=== PATIENT | female | born 1990 | race American Indian/Alaskan Native ===

== ENCOUNTER 2019-03-20 12:30 | Emergency (ER) | payer MEDICAID ==
[2019-03-20] MEDS ORDERED: PROVENTIL IH ONE (12:37)
[2019-03-20] MEDS ORDERED: ATROVENT IH ONE (12:37)
[2019-03-20] MEDS ORDERED: SOLU-Medrol IM ONE (12:38)
--- NOTE | 2019-03-20 12:40 | Emergency Department Report ---
ED Asthma HPI - General Chief Complaint: Dyspnea/Respdistress Stated Complaint: OUMOU Time Seen by Provider: 03/20/19 12:34 Source: patient Mode of arrival: Ambulatory Limitations: No Limitations - History of Present Illness Initial Comments: Patient is 28 years old female with history of asthma. Patient stated that she recently moved to [place]. Patient presented to the ER complaining of shortness of breath, wheezing and difficulty breathing for the last 3 days. Patient stated that she is out of her asthma medication. Patient denied any fever or chills. No chest pain, abdominal pain or lower extremity swelling. MD Complaint: "asthma attack", shortness of breath, wheezing - Related Data Previous Rx's Medication Instructions Recorded Last Taken Type ALBUTEROL Inhaler (OR & NICU) 2 puff IH QID PRN #1 inhalation 03/20/19 Unknown Rx [ProAir HFA Inhaler] Albuterol Sulfate [Proventil Hfa] 6.7 gm IH Q6H #2 hfa.aer.ad 03/20/19 Unknown Rx Ipratropium/Albuterol Sulfate 1 ampul IH Q6HR #1 box 03/20/19 Unknown Rx [DUONEB *Not for PRN Use*] Prednisone [predniSONE 10 mg 10 mg PO .TAPER #1 tab.ds.pk 03/20/19 Unknown Rx (6-Day Pack, 21 Tabs)] Allergies Allergy/AdvReac Type Severity Reaction Status Date / Time No Known Allergies Allergy Unverified 03/20/19 12:41 ED Review of Systems ROS: Stated complaint: OUMOU Other details as noted in HPI Comment: All other systems reviewed and negative Constitutional: denies: chills, fever Respiratory: shortness of breath, SOB with exertion, SOB at rest, wheezing. denies: cough, orthopnea Cardiovascular: denies: chest pain Gastrointestinal: denies: abdominal pain, nausea, vomiting Musculoskeletal: denies: back pain Neurological: denies: headache, weakness ED Past Medical Hx - Past Medical History Previous Medical History?: No Hx Asthma: Yes - Medications Home Medications: Home Medications Medication Instructions Recorded Confirmed Last Taken Type ALBUTEROL Inhaler (OR & NICU) 2 puff IH QID PRN #1 inhalation 03/20/19 Unknown Rx [ProAir HFA Inhaler] Albuterol Sulfate [Proventil Hfa] 6.7 gm IH Q6H #2 hfa.aer.ad 03/20/19 Unknown Rx Ipratropium/Albuterol Sulfate 1 ampul IH Q6HR #1 box 03/20/19 Unknown Rx [DUONEB *Not for PRN Use*] Prednisone [predniSONE 10 mg 10 mg PO .TAPER #1 tab.ds.pk 03/20/19 Unknown Rx (6-Day Pack, 21 Tabs)] ED Physical Exam - General Limitations: No Limitations General appearance: alert, in no apparent distress - Head Head exam: Present: atraumatic, normocephalic, normal inspection - ENT ENT exam: Present: normal exam, normal orophraynx, mucous membranes moist - Respiratory Respiratory exam: Present: respiratory distress, wheezes, rhonchi, prolonged expiratory. Absent: rales, stridor, chest wall tenderness, accessory muscle use, decreased breath sounds - GI/Abdominal GI/Abdominal exam: Present: soft. Absent: distended, tenderness, guarding, rebound, rigid - Extremities Exam Extremities exam: Present: normal inspection, full ROM, normal capillary refill. Absent: tenderness, pedal edema, calf tenderness - Back Exam Back exam: Present: normal inspection, full ROM. Absent: CVA tenderness (R) - Neurological Exam Neurological exam: Present: alert, oriented X3, CN II-XII intact, normal gait, reflexes normal - Skin Skin exam: Present: warm, intact, normal color ED Course Vital Signs 03/20/19 03/20/19 03/20/19 13:00 13:05 13:18 Temperature 98.4 F Pulse Rate 78 Respiratory 24 24 Rate Respiratory 28 H Rate [Anterior Throughout] Blood Pressure 126/73 [Left] O2 Sat by Pulse 97 98 Oximetry 03/20/19 14:49 Temperature Pulse Rate Respiratory 18 Rate Respiratory Rate [Anterior Throughout] Blood Pressure [Left] O2 Sat by Pulse 99 Oximetry ED Medical Decision Making - Medical Decision Making Patient is 11 years old female with history of asthma. Patient stated that she recently moved to [place]. Patient presented to the ER complaining of shortness of breath, wheezing and difficulty breathing for the last 3 days. Patient stated that she is out of her asthma medication. Patient denied any fever or chills. No chest pain, abdominal pain or lower extremity swelling. Patient received albuterol, Atrovent and Solu-Medrol. Patient stated that she is feeling much better. Patient advised to follow up with primary care physician in the next 2-3 days and to return to the ER if symptoms are not improved. Critical care attestation.: If time is entered above; I have spent that time in minutes in the direct care of this critically ill patient, excluding procedure time. ED Disposition Clinical Impression: Asthma exacerbation Disposition: DC- TO HOME OR SELFCARE Is pt being admited?: No Condition: Stable Instructions: Asthma (ED) Prescriptions: Ipratropium/Albuterol Sulfate [DUONEB *Not for PRN Use*] 1 ampul IH Q6HR #1 box Prednisone [predniSONE 10 mg (6-Day Pack, 21 Tabs)] 10 mg PO .TAPER #1 tab.ds.pk ALBUTEROL Inhaler (OR & NICU) [ProAir HFA Inhaler] 2 puff IH QID PRN #1 inhalation PRN Reason: Shortness Of Breath Albuterol Sulfate [Proventil Hfa] 6.7 gm IH Q6H #2 hfa.aer.ad Referrals: [facility] [Provider Group] - 3-5 Days Forms: Work/School Release Form(ED)
[2019-03-20 13:19] VITALS: BP 126/73
== END 2019-03-20 15:00 | disposition home or self-care (01) ==
LOC: ED 12:30
DX: J45.901 Unspecified asthma with (acute) exacerbation (principal)
CPT/HCPCS: 94644; 96372; 99282; J2930